=== PATIENT | male | born 1960 | race Caucasian/White ===

== ENCOUNTER 2024-02-25 08:03 | Emergency (ER) | payer BC ==
[~2024-02-25] VITALS: Ht 177.8 cm; Wt 119.9 kg
[2024-02-25] MEDS ORDERED: ondansetron HCL 4 MG/2 ML VIAL IV PRN (08:15)
[2024-02-25] MEDS ORDERED: HYDROmorphone HCL 1 MG/ML SYR IV ONE (08:15)
[2024-02-25] MEDS ORDERED: KETOROLAC TROMETHAMINE 30 MG/ML VIAL IV ONE (08:15)
[2024-02-25] MEDS ORDERED: LISINOPRIL5 MG PO (08:17)
[2024-02-25] MEDS ORDERED: SIMVASTATIN80 MG PO (08:18)
[2024-02-25] MEDS ORDERED: CRESTOR40 MG NG (08:19)
[2024-02-25] MEDS ORDERED: METFORMIN HCL500 MG PO (08:19)
[2024-02-25] MEDS ORDERED: NAPROXEN500 MG PO (08:21)
[2024-02-25] MEDS ORDERED: AMBIEN10 MG PO (08:21)
[2024-02-25] MEDS ORDERED: ZYRTEC10 MG PO (08:22)
[2024-02-25] MEDS ORDERED: VITAMIN D-40010 MCG PO (08:23)
[2024-02-25] MEDS ORDERED: SUPER B-50 COM1 EAC2 PO (08:23)
[2024-02-25] MEDS ORDERED: SAW PALMETTO450 MG PO (08:23)
[2024-02-25] MEDS ORDERED: SAW PALMETTO450 MG (08:23)
[2024-02-25] MEDS ORDERED: NITROGLYCERIN0.4 MG SL (08:24)
[2024-02-25] MEDS ORDERED: ELIQUIS5 MG PO (08:24)
[2024-02-25] MEDS ORDERED: EZETIMIBE10 MG PO (08:25)
[2024-02-25] MEDS ORDERED: DILTIAZEM ER120 MG PO (08:25)
[2024-02-25 08:29] LABS: BASOPHILS 0.4 % (0-2); EOSINOPHILS 1.2 % (0-6); HEMATOCRIT 43.6 % (35.0-50.0); HEMOGLOBIN 14.9 g/dL (12.0-18.0); LYMPHOCYTES 24.1 % (24-44); MCH 30.3 (27-36); MCHC 34.1 g/dl (30-36); MCV 88.8 fl (81-99); MONOCYTES 7.2 % (0-12); NEUTROPHILS 67.1 % (39-80); PLATELET COUNT 171 K/uL (140-440); RBC 4.91 M/ul (4.3-5.7); RDW 14.3 (10.5-15.0)
[2024-02-25 08:44] LABS: ANION GAP 19.3 (7-21); BILIRUBIN, TOTAL 1.1 ng/dL (0.2-1.0); POTASSIUM 4.3 mmol/L (3.5-5.1); PROTEIN, TOTAL 6.8 g/dL (6.4-8.2)
[2024-02-25 09:05] LABS: ALBUMIN 3.9 g/dL (3.4-5.0); ALBUMIN/GLOBULIN RATIO 1.34 (1.1-2.4); BUN/CREATININE RATIO 11.21 (6.0-28.6); CREATININE, SERUM 1.07 mg/dL (0.70-1.30)
[2024-02-25 09:25] LABS: BILIRUBIN, URINE NEGATIVE (negative); BLOOD/HGB, URINE MODERATE (Negative); KETONE, URINE NEGATIVE (Negative); LEUK ESTERASE, URINE NEGATIVE (negative); NITRITE, URINE NEGATIVE (negative)
[2024-02-25 09:33] LABS: BACTERIA, URINE NONE SEEN /hpf (negative); CASTS, URINE NONE SEEN \\lpf; COLLECTION TYPE, URINE CLEAN CATCH; CRYSTALS, URINE NONE SEEN (0-1+); EPITHELIAL CELLS, URINE SQUAMOUS 1+ /lpf (0-1+); RED BLOOD CELLS, URINE 41-50 /hpf (0-5); REFLEX CULTURE, URINE No (No)
[2024-02-25] MEDS ORDERED: HYDROCODON-ACE1 EA10 PO (09:58)
[2024-02-25] MEDS ORDERED: KETOROLAC TROME10 MG PO (09:58)
[2024-02-25 10:07] VITALS: BP 122/69
== END 2024-02-25 10:07 | disposition home or self-care (01) ==
LOC: ED 08:03
PROVIDERS: Emergency Medicine
DX: N13.2 Hydronephrosis with renal and ureteral calculous obstruction (principal); Z79.899 Other long term (current) drug therapy; Z79.01 Long term (current) use of anticoagulants
CPT/HCPCS: 36415; 74176; 80053; 81001; 83690; 85025; 96374; 96375; 99284-25; J1170; J1885